=== PATIENT | male | born 1950 | race African-American/Black ===

== ENCOUNTER 2018-11-15 10:23 | Emergency (ER) | payer MEDICARE, BC ==
[2018-11-15 10:52] LABS: #Eosinphils 0.3 thou/uL (0.0-0.7); #Lymphocytes 3.2 thou/uL (1.20-3.40); #Monocytes 0.7 thou/uL (0.11-0.59); #Neutrophils 4.6 thou/uL (1.40-6.50); %Basophils 0.5 % (0.0-1.0); %Eosinophils 3.5 % (0.0-10.0); %Lymphocytes 36.2 % (21.0-51.0); %Monocytes 8.1 % (0.0-10.0); %Neutrophils 51.6 % (42.0-75.0); Hemoglobin 13.5 g/dL (14.0-18.0); Mean Corpuscular HGB CONC 30.1 g/dL (32.0-36.0); Mean Corpuscular Hemoglobin 28.3 pg (27.0-31.0); Mean Corpuscular Volume 94.2 fL (78.0-98.0); Mean Platelet Volume 7.4 fL (7.4-10.4); Platelet Count 240 thou/uL (130-400); Red Blood Cell (RBC) Count 4.78 mill/uL (4.70-6.10); White Blood Cell (WBC) Count 8.9 thou/uL (4.8-10.8)
[2018-11-15 10:54] LABS: PTT 26.7 SEC (22.9-36.1); Prothrombin Time 13.4 SEC (12.0-14.7)
[2018-11-15 11:03] LABS: ALT (SGPT) 33 U/L (8-55); AST (SGOT) 27 U/L (5-34); Albumin 4.2 g/dL (3.4-4.8); Alkaline Phosphatase 147 U/L (40-150); Anion Gap 15 mmol/L (10-20); Anisocytosis MODERATE=16-30 cells (100X) (0-5/hpf); BUN (Urea Nitrogen) 11 mg/dL (8.4-25.7); Bilirubin, Total 0.4 mg/dL (0.2-1.2); Calc. Creatinine Clearance 0 mL/min (70-130); Calcium 10.1 mg/dL (7.8-10.44); Carbon Dioxide 23 mmol/L (23-31); Chloride 108 mmol/L (98-107); Estimated GFR-MDRD 73; Globulin 3.7 g/dL (2.4-3.5); Glucose 99 mg/dL (80-115); MDiff Complete? YES; Platelet Morphology Comment Appears Adequate; Potassium 3.9 mmol/L (3.5-5.1); Protein, Total 7.9 g/dL (5.8-8.1); Sodium 142 mmol/L (136-145)
--- NOTE | 2018-11-15 11:08 | CT ---
FCT Brain WO Con History: [Stroke protocol] Comparison: None. Findings: Moderate chronic microvascular ischemic changes in the subcortical and deep white matter. N o midline shift or mass effect. No large volume territorial infarction. The paranasal sinuses and mastoids are clear. Calvarium is intact. Impression: No acute intracranial abnormality.
[2018-11-15] MEDS ORDERED: Aspirin Chewable 81 MG TAB ONE ×2 (11:47→11:51)
--- NOTE | 2018-11-17 07:29 | CT ---
CT ANGIOGRAM HEAD CT ANGIOGRAM NECK: History: Stroke protocol. Comparison: None. Technique: CT angiogram of the head and neck are performed in the axial plane. Three dimensional refo rmatted images are submitted for interpretation. FINDINGS: POST CONTRAST HEAD CT: Cortical shaw white matter differentiation is preserved. [place] left ocular lens and implanted right ocular lens are appropriately located. Both globes are in tact. Retrobulbar fat is preserved. Symmetric attenuation of the optic nerves and ocular rectus muscl es. Aerodigestive tract is patent. No mucosal abnormality. No obvious masses in the oral cavity. Limited evaluation due to dental amalgam artifact. Epiglottis has normal caliber. Pre epiglottic fat is prese rved. Adequate aeration of the paranasal sinuses and mastoid air cells. No prevertebral soft tissue swelling. Symmetric attenuation of the parotid and submandibular glands. Unremarkable thyroid gland. Symmetric attenuation of the sternoclidonoid muscles. No evidence of lymphadenopathy by size criteria. Mild emphysematous changes of the lung apices. Cervical spine vertebral body height is maintained. There is no fracture. Central canal stenosis is patent. There are varying degrees of foraminal narrowing due to degenerativ e change. Evaluation is limited by technique. CT ANGIOGRAM: There is appropriate enhancement in the luminal diameter in the aortic arch. Right carotid: Right carotid artery origin, common carotid artery, carotid bifurcation and internal c arotid have appropriate enhancement and luminal diameter. Left carotid: Left carotid artery origin has appropriate enhancement and luminal diameter. Left commo n carotid artery, carotid bifurcation and internal carotid have appropriate enhancement and luminal d iameter. Cervical vertebral arteries are patent throughout their course in the neck. The left vertebral artery is dominant. Both subclavian arteries are unremarkable. CT ANGIOGRAM OF THE HEAD: The intracranial internal carotid artery has appropriate enhancement and luminal diameter. There is appropriate enhancement and luminal diameter of the A1 and M1 segments. Left A1 segment is s lightly smaller than the contralateral side likely due to a congenital variance. Proximal A2 segment and MCA branches are symmetric. Posterior circulation: Limited evaluation of PICA artery origins. Both vertebral arteries supply norm al appearing basilar artery. The left and right P1 segments have appropriate enhancement and luminal diameter. IMPRESSION: 1. No significant stenosis of the cervical carotid arteries, based upon NASCET criteria. 2. Unremarkable CT angiogram of the unga of [place]. 3. Results of the study discussed with Dr. Dannie Dunn, 4 at 11:44 a.m. Code CR POS: LEXII
== END 2018-11-15 13:00 | disposition short-term general hospital (02) ==
LOC: BURERS 10:23
DX: I63.9 Cerebral infarction, unspecified (principal); I10 Essential (primary) hypertension; B20 Human immunodeficiency virus [HIV] disease; Z87.891 Personal history of nicotine dependence; Z79.899 Other long term (current) drug therapy; Z79.82 Long term (current) use of aspirin
CPT/HCPCS: 36415; 36416; 70450; 70496; 70498; 80053; 84484; 85025; 85610; 85730; 93005

== ENCOUNTER 2019-12-04 10:38 | Emergency (ER) | payer MEDICARE, BC ==
--- NOTE | 2019-12-04 11:41 | CT ---
CT BRAIN WITHOUT CONTRAST: Date: 12/04/2019 Comparison made with the 11/15/2018 study in this patient presenting with headache and dizziness. FINDINGS: The ventricles are normal in size with no shift. Some patchy hypolucency throughout the deep white ma tter is consistent with chronic microvascular ischemia. The appearance is no different than it was on e year ago, though small acute strokes would be missed against this background. No intracranial bleed ing, mass, or edema was found. The skull is normal in appearance. The visible paranasal sinuses and m astoid air cells are clear. IMPRESSION: Chronic ischemic changes, but no acute findings. Preliminary report called to Dr. Jones at 1131 hours on 12/04/2019. CODE CR. POS: HOME
== END 2019-12-04 11:10 | disposition home or self-care (01) ==
LOC: BURERS 10:38
DX: R42 Dizziness and giddiness (principal); B20 Human immunodeficiency virus [HIV] disease; I10 Essential (primary) hypertension; Z87.891 Personal history of nicotine dependence; Z79.899 Other long term (current) drug therapy
CPT/HCPCS: 70450; 93005

== ENCOUNTER 2019-12-09 11:33 | Emergency (ER) | payer MEDICARE, BC ==
[2019-12-09 12:47] LABS: Mean Corpuscular HGB CONC 29.2 g/dL (32.0-36.0); Mean Corpuscular Hemoglobin 30.7 pg (27.0-31.0); Mean Platelet Volume 9.2 fL (7.4-10.4); Platelet Count 161 thou/uL (130-400); RBC Distribution Width 14.8 % (11.5-14.5); Red Blood Cell (RBC) Count 4.56 mill/uL (4.70-6.10); White Blood Cell (WBC) Count 7.9 thou/uL (4.8-10.8)
[2019-12-09 13:02] LABS: #Basophils 0.1 thou/uL (0.0-0.2); #Eosinphils 0.3 thou/uL (0.0-0.7); #Lymphocytes 2.5 thou/uL (1.20-3.40); #Monocytes 0.6 thou/uL (0.11-0.59); #Neutrophils 4.3 thou/uL (1.40-6.50); %Basophils 1.6 % (0.0-1.0); %Eosinophils 4.3 % (0.0-10.0); %Lymphocytes 32.2 % (21.0-51.0); %Monocytes 7.8 % (0.0-10.0); %Neutrophils 54.2 % (42.0-75.0); Hypochromia SLIGHT = 6-15 cells (100X) (0-5/hpf); MDiff Complete? YES; Macrocytosis SLIGHT = 6-15 cells (100X) (0-5/hpf)
[2019-12-09 13:03] LABS: ALT (SGPT) 23 U/L (8-55); AST (SGOT) 26 U/L (5-34); Albumin 4.2 g/dL (3.4-4.8); Alkaline Phosphatase 118 U/L (40-110); Anion Gap 14 mmol/L (10-20); BUN (Urea Nitrogen) 13 mg/dL (8.4-25.7); Bilirubin, Total 0.7 mg/dL (0.2-1.2); Calc. Creatinine Clearance 0 mL/min (70-130); Calcium 9.6 mg/dL (7.8-10.44); Carbon Dioxide 22 mmol/L (23-31); Chloride 108 mmol/L (98-107); Estimated GFR-MDRD 56; Globulin 3.6 g/dL (2.4-3.5); Glucose 94 mg/dL (83-110); Potassium 4.4 mmol/L (3.5-5.1); Protein, Total 7.8 g/dL (5.8-8.1); Sodium 140 mmol/L (136-145)
--- NOTE | 2019-12-09 14:23 | CT ---
CT OF THE BRAIN WITHOUT CONTRAST: Date: 12-09-[address] was done and compared with a 12-03 study. FINDINGS: No intracranial hemorrhage was seen. The ventricles are normal in size and show no shift. There is no sign of mass or edema. There are various areas of low density throughout the deep white matter, cons istent with chronic microvascular ischemia. Some are slightly more punctate, such as in the high righ t frontal area and right thalamus, but could be prior tiny lacunar infarcts. Acute strokes would be n ested against this background. The skull appears normal and the visible paranasal sinuses are clear. IMPRESSION: Chronic ischemic changes, but no acute intracranial findings. Report called to Rosie in ER at 1315 on 12-09-2019. POS: HOME
--- NOTE | 2019-12-09 14:24 | RAD ---
CHEST TWO VIEWS: Date: 12-09-2019 Comparison: None FINDINGS: The heart is normal in size for age. There is faint calcification in the aortic arch. The trachea dev iates somewhat to the right as it crosses the aortic arch, though the patient is turned slightly whic h will accentuate this further. There is no vascular congestion, edema, or pleural effusion. The lung s are clear. IMPRESSION: No acute thoracic findings. Slight deviation of the trachea is thought to be due to a combination of an ectatic aortic arch and the patient being rotated slightly. POS: HOME
== END 2019-12-09 15:11 | disposition home or self-care (01) ==
LOC: BURERS 11:33
DX: E86.0 Dehydration (principal); R26.9 Unspecified abnormalities of gait and mobility; B20 Human immunodeficiency virus [HIV] disease; I10 Essential (primary) hypertension; Z87.891 Personal history of nicotine dependence; Z86.73 Personal history of transient ischemic attack (TIA), and cerebral infarction without residual deficits; Z79.899 Other long term (current) drug therapy; Z79.82 Long term (current) use of aspirin
CPT/HCPCS: 70450; 71046; 80053; 84484; 85025; 93005; 94760; 99283

== ENCOUNTER 2020-06-13 11:43 | Emergency (ER) | payer MEDICARE, BC ==
[2020-06-13] MEDS ORDERED: Ketorolac Tromethamine 30 MG/ML VIAL ONE (12:03)
[2020-06-13 12:26] LABS: #Basophils 0.1 thou/uL (0.0-0.2); #Eosinphils 0.1 thou/uL (0.0-0.7); #Lymphocytes 1.9 thou/uL (1.20-3.40); #Monocytes 0.7 thou/uL (0.11-0.59); #Neutrophils 9.8 thou/uL (1.40-6.50); %Basophils 0.6 % (0.0-1.0); %Eosinophils 0.8 % (0.0-10.0); %Lymphocytes 14.8 % (21.0-51.0); %Monocytes 5.4 % (0.0-10.0); %Neutrophils 78.5 % (42.0-75.0); MDiff Complete? YES; Macrocytosis SLIGHT = 6-15 cells (100X) (0-5/hpf); Mean Corpuscular HGB CONC 31.3 g/dL (32.0-36.0); Mean Corpuscular Hemoglobin 32.8 pg (27.0-31.0); Mean Platelet Volume 9.7 fL (7.4-10.4); Platelet Count 178 thou/uL (130-400); RBC Distribution Width 13.9 % (11.5-14.5); Red Blood Cell (RBC) Count 4.27 mill/uL (4.70-6.10); White Blood Cell (WBC) Count 12.5 thou/uL (4.8-10.8)
[2020-06-13 12:32] LABS: ALT (SGPT) 27 U/L (8-55); AST (SGOT) 18 U/L (5-34); Albumin 4.1 g/dL (3.4-4.8); Alkaline Phosphatase 109 U/L (40-110); Anion Gap 13 mmol/L (10-20); BUN (Urea Nitrogen) 13 mg/dL (8.4-25.7); Bilirubin, Total 0.9 mg/dL (0.2-1.2); Calc. Creatinine Clearance 0 mL/min (70-130); Calcium 9.3 mg/dL (7.8-10.44); Carbon Dioxide 25 mmol/L (23-31); Chloride 106 mmol/L (98-107); Estimated GFR-MDRD 63; Globulin 3.7 g/dL (2.4-3.5); Glucose 108 mg/dL (83-110); Potassium 4.1 mmol/L (3.5-5.1); Protein, Total 7.8 g/dL (5.8-8.1); Sodium 140 mmol/L (136-145)
--- NOTE | 2020-06-13 16:51 | RAD ---
RIGHT SHOULDER THREE VIEWS: 06/13/20 No fracture, dislocation, or AC joint widening was seen. There is some minor bony spurring around the AC joint, but the glenohumeral joint appears normal. A soft tissue calcification overlying the humer us may be a small calcified lymph node. IMPRESSION: No acute findings. POS: HOME
== END 2020-06-13 13:03 | disposition home or self-care (01) ==
LOC: BURERS 11:43
DX: S46.911A Strain of unspecified muscle, fascia and tendon at shoulder and upper arm level, right arm, initial encounter (principal); S29.011A Strain of muscle and tendon of front wall of thorax, initial encounter; I10 Essential (primary) hypertension; Z87.891 Personal history of nicotine dependence; Z86.73 Personal history of transient ischemic attack (TIA), and cerebral infarction without residual deficits; Z79.899 Other long term (current) drug therapy; X50.0XXA Overexertion from strenuous movement or load, initial encounter; Y93.89 Activity, other specified
CPT/HCPCS: 36415; 80053; 83880; 84484; 85025; 93005; 94760; 96374; J1885